=== PATIENT | female | born 1965 | race Caucasian/White ===

== ENCOUNTER 2021-05-07 13:47 | Emergency (ER) | payer SELFPAY ==
[~2021-05-07] VITALS: Ht 152.4 cm; Wt 64.9 kg
[2021-05-07 13:51] VITALS: BP 137/78
--- NOTE | 2021-05-07 13:55 | NUR ---
PT TAKEN TO RONDA Hill
--- NOTE | 2021-05-07 14:33 | NUR ---
[employer] ENGINEER WITH PT IN C.
[2021-05-07] MEDS ORDERED: NACL 0.9% 1,000 ML IV ONE (14:40)
[2021-05-07 14:47] LABS: BASOPHILS % (AUTO) 0.4 % (0.0-2.0); EOSINOPHILS % (AUTO) 0.5 % (0.0-4.0); HEMATOCRIT 39.9 % (36-48); HEMOGLOBIN 13.7 g/dL (12.0-16.0); LYMPHOCYTES # (AUTO) 1.3 K/uL (2.5-16.5); LYMPHOCYTES % (AUTO) 24.3 % (20.5-51.1); MEAN CORPUSCULAR HEMOGLOBIN 31 pg (27-31); MEAN CORPUSCULAR HGB CONC 34 g/dL (33-37); MEAN CORPUSCULAR VOLUME 91.2 fL (80-94); MONOCYTES # (AUTO) 0.4 K/uL (0.8-1.0); MONOCYTES % (AUTO) 6.8 % (1.7-9.3); NEUTROPHILS # (AUTO) 3.7 K/uL (1.8-7.7); PLATELET COUNT (AUTO) 188 K/uL (140-450); RED BLOOD CELL COUNT(AUTO) 4.38 MIL/uL (4.20-5.40); RED CELL DISTRIBUTION WIDTH 12.2 % (11.6-13.7); WHITE BLOOD COUNT (AUTO) 5.5 K/uL (4.8-10.8)
--- NOTE | 2021-05-07 14:54 | NUR ---
PT TAKEN TO ER BED 8 VIA W/C.
--- NOTE | 2021-05-07 15:00 | NUR ---
ekg performed at bedside. ekg reads sinus rhythm @ 91
--- NOTE | 2021-05-07 15:10 | NUR ---
PT RESTING, VSS, WILL CONTINUE TO MONITOR.
--- NOTE | 2021-05-07 15:11 | NUR ---
PT TAKEN TO CT VIA RASHLEY.
[2021-05-07 15:13] LABS: ALBUMIN 3.9 g/dL (3.4-5.0); ANION GAP 11.5 (8-16); CARBON DIOXIDE 30.9 mmol/L (21-32); CREATININE 0.9 mg/dL (0.6-1.3); POTASSIUM 4.4 mmol/L (3.5-5.1); TOTAL BILIRUBIN 0.4 mg/dL (0.0-1.0)
--- NOTE | 2021-05-07 15:15 | NUR ---
55 Y/O FEMALE BIBA FROM HOME C/O ANXIETY. PER MEDICS, PT STATED THAT SHE ATE AN HERBAL SOUP, TOOK A NAP, THEN WOKE UP DIZZY AND HAD AN ANXIETY ATTACK. PT C/O NUMBNESS TO HANDS AND FEET. PER MEDICS, PT WAS EMOTIONAL AND HYPERVENTILATING UPON ARRIVAL. PT IS A&OX1 TO NAME ONLY, RE-ORIENTED PT TO SURROUNDINGS. MADE AWARE, CT SCAN ORDERED. PMH:DM, HTN, HLD NKA
--- NOTE | 2021-05-07 15:20 | NUR ---
PT TAKEN TO ER BED 8 VIA MONO.
--- NOTE | 2021-05-07 15:49 | NUR ---
ASHLEY SOLIZ WITH PT AND FAMILY FOR FURTHER EVALUATION.
--- NOTE | 2021-05-07 17:18 | NUR ---
PT RESTING, HOB ELEVATED FOR COMFORT, VSS, WILL CONTINUE TO MONITOR.
[2021-05-07 19:28] LABS: BARBITURATE, URINE NEGATIVE ng/ml (NEG <=200); BENZODIAZEPINE, URINE NEGATIVE ng/mL (NEG <=200); CANNABINOID, URINE NEGATIVE ng/mL (NEG <=50); COCAINE, URINE NEGATIVE ng/mL (NEG <=300); OPIATE, URINE NEGATIVE ng/mL (NEG <=2000); PHENCYCLIDINE SCREEN,URINE NEGATIVE ng/mL (NEG <=25)
--- NOTE | 2021-05-07 19:30 | NUR ---
AMBULATED PATIENT, TOLERATED WELL. PATIENT DOES COMPLAIN OF PAIN BUT TOLERABLE FOR PATIENT
[2021-05-07] MEDS ORDERED: GABA300C PO (19:35)
[2021-05-07] MEDS ORDERED: CEPH-588 PO (19:38)
--- NOTE | 2021-05-07 19:38 | NUR ---
RECEIVED REPORT FROM BENY MAC FOR CONTINUITY OF CARE
--- NOTE | 2021-05-07 19:38 | NUR ---
GAVE REPORT TO BENY THURMAN. TRANSFER OF CARE AT THIS TIME.
--- NOTE | 2021-05-07 19:50 | NUR ---
IV removed, catheter intact and site benign. Applied folded 4x4 gauze and tape to stop bleeding.
--- NOTE | 2021-05-07 19:56 | NUR ---
Patient discharged with v/s stable. Written and verbal after care instructions given and explained. Patient alert, oriented and verbalized understanding of instructions. Ambulatory with steady gait. All questions addressed prior to discharge. ID band removed. Patient advised to follow up with PMD. Rx of KEFLEX, NEURONTIN given. Patient educated on indication of medication including possible reaction and side effects. Opportunity to ask questions provided and answered.
[2021-05-07 19:57] VITALS: BP 130/86
== END 2021-05-07 19:56 | disposition home or self-care (01) ==
LOC: MED 13:47
DX: F41.9 Anxiety disorder, unspecified (principal); G62.9 Polyneuropathy, unspecified; N39.0 Urinary tract infection, site not specified; Z79.899 Other long term (current) drug therapy
CPT/HCPCS: 36415; 70450; 80053; 80305; 81002; 84443; 84484; 85025; 93005; 96360; 99285; J7030